=== PATIENT | female | born 1990 | race American Indian/Alaskan Native ===

== ENCOUNTER 2021-03-13 13:18 | Emergency (ER) | payer SELFPAY ==
[2021-03-13 14:33] VITALS: BP 109/68
--- NOTE | 2021-03-13 14:37 | Emergency Department Report ---
Abscess Boil HPI - HPI Chief Complaint: Skin/Abscess/Foreign Body Stated Complaint: LUMPS UNDER ARM Time Seen by Provider: 03/13/21 14:00 Duration: 1 Week Location: Upper Extremity Severity: Mild History: No Fever, No Pain, No Purulent Drainage, No Numbness, No Foreign Body, No Previous History, No Insect Bite HPI: This is a 30-year-old female nontoxic, well nourished in appearance, no acute signs of distress presents to the ED with c/o of some swelling and pain to left axilla area x 1 week. Patient denies any pus or drainage. Patient denies any fever, chills, nausea, vomiting, chest pain, shortness of breath, headache or stiff neck. Patient denies any allergies. Home Medications: Previous Rx's Medication Instructions Recorded Last Taken Type Sulfamethoxazole/Trimethoprim 1 each PO BID #14 tablet 03/13/21 Unknown Rx [Bactrim DS TAB] Allergies/Adverse Reactions: Allergies Allergy/AdvReac Type Severity Reaction Status Date / Time No Known Allergies Allergy Verified 03/13/21 13:21 ED Review of Systems ROS: Stated complaint: LUMPS UNDER ARM Other details as noted in HPI Comment: All other systems reviewed and negative Constitutional: denies: chills, fever Eyes: denies: eye pain, eye discharge, vision change ENT: denies: ear pain, throat pain Respiratory: denies: cough, shortness of breath, wheezing Cardiovascular: denies: chest pain, palpitations Endocrine: no symptoms reported Gastrointestinal: denies: abdominal pain, nausea, diarrhea Genitourinary: denies: urgency, dysuria, discharge Musculoskeletal: denies: back pain, joint swelling, arthralgia Skin: denies: rash, lesions Neurological: denies: headache, weakness, paresthesias Psychiatric: denies: anxiety, depression Hematological/Lymphatic: denies: easy bleeding, easy bruising ED Past Medical Hx - Medications Home Medications: Home Medications Medication Instructions Recorded Confirmed Last Taken Type Sulfamethoxazole/Trimethoprim 1 each PO BID #14 tablet 03/13/21 Unknown Rx [Bactrim DS TAB] ED Abscess Boil Physical Exam - Exam General: Vital signs noted. No distress. Alert and acting appropriately. Size: 1 cm Exam: Yes Tenderness, Yes Normal Neurologic Exam, Yes Normal Circulation, No Fluctuance, No Surrounding Cellulites/Erythema, No Lymphangitis, No Crepitation, No Heart Murmur Exam: Nodular tenderess with no induration or flutance noted to left axilla. ED Course Vital Signs 03/13/21 13:22 Temperature 97.8 F Pulse Rate 104 H Respiratory 16 Rate Blood Pressure 109/68 O2 Sat by Pulse 98 Oximetry - Reevaluation(s) Reevaluation #1: 03/13/21 14:35 Patient is speaking in full sentences with no signs of distress noted. Critical care attestation.: If time is entered above; I have spent that time in minutes in the direct care of this critically ill patient, excluding procedure time. ED Medical Decision Making - Medical Decision Making This is a 30-year-old female that presents with cellulitis with most likely developing abscess. Patient is stable and was examined by me. There is no induration, fluctuance. At this time incision and drainage has not been performed due to no induration or fluctuance. The area has been outlined with a permanent marker and patient was instructed to observe symptoms of increased redness or swelling and to return to the ER if this does occur. I will discharge patient with Bactrim. Patient was referred to Follow-up with a primary care doctor in 3-5 days or if symptoms worsen and continue return to emergency room as soon as possible. At time of discharge, the patient does not seem toxic or ill in appearance. No acute signs of distress noted. Patient agrees to discharge treatment plan of care. No further questions noted by the patient. ED Disposition Clinical Impression: Cellulitis Qualifiers: Site of cellulitis: extremity Site of cellulitis of extremity: upper extremity Laterality: left Qualified Code(s): L03.114 - Cellulitis of left upper limb Disposition: HOME / SELF CARE / HOMELESS Is pt being admited?: No Does the pt Need Aspirin: No Condition: Stable Additional Instructions: Follow-up with a primary care doctor in 3-5 days or if symptoms worsen and continue return to emergency room as soon as possible. Prescriptions: Sulfamethoxazole/Trimethoprim [Bactrim DS TAB] 1 each PO BID #14 tablet Referrals: PRIMARY CAREMD [Referring] - 3-5 Days CRYS NAPOLES MD [Staff Physician] - 3-5 Days Time of Disposition: 14:37
== END 2021-03-13 15:09 | disposition home or self-care (01) ==
LOC: ED 13:18
DX: L03.114 Cellulitis of left upper limb (principal); Z79.899 Other long term (current) drug therapy
CPT/HCPCS: 99281

== ENCOUNTER 2021-03-13 18:45 | Emergency (ER) | payer MEDICAID ==
--- NOTE | 2021-03-13 21:01 | Emergency Department Report ---
ED General Adult HPI - General Chief complaint: Medical Clearance Stated complaint: SKIN CONDITION Time Seen by Provider: 03/13/21 20:52 Source: patient Mode of arrival: Ambulatory Limitations: No Limitations - History of Present Illness Initial comments: 30-year-old F [place] female with my department complaining of reemerging acne issue to her face and she seeks medications to resolve the skin condition. She reports no fever, chills, sweats. No change in activities of daily and daily livings or any known irritants to cause any rash flareups. She also reports having come in contact with and an STD in 2006 in the form of herpes and wants to to be reevaluated for a herpes to see if she still carries the virus. She also wants to get STD panel to make sure she has not picked up any other sexual transmitted diseases although she reports not being currently active. He reports no vaginal bleeding, no pelvic pain, no dysuria no genital rashes no oral rashes no hematuria or dysuria. Next states she wants to change her housing situation and want us to help her change her current living location she does not like the current environment. She reports no current harm being done she reports no unsafe situation but does want a different location. Lastly she reports having increased amount of belching and flatulence after consuming certain meals of unknown etiology she is not tried any palliative factors reports no abdominal pain, no hemoptysis no hematemesis no hematochezia no melena Radiation: non-radiation Consistency: constant Improves with: none Associated Symptoms: denies other symptoms. denies: chest pain, cough, fever/chills, loss of appetite, nausea/vomiting, shortness of breath, syncope, weakness - Related Data Previous Rx's Medication Instructions Recorded Last Taken Type Sulfamethoxazole/Trimethoprim 1 each PO BID #14 tablet 03/13/21 Unknown Rx [Bactrim DS TAB] Allergies Allergy/AdvReac Type Severity Reaction Status Date / Time No Known Allergies Allergy Verified 03/13/21 13:21 ED Review of Systems ROS: Stated complaint: SKIN CONDITION Other details as noted in HPI Comment: All other systems reviewed and negative ED Past Medical Hx - Past Medical History Previous Medical History?: No - Surgical History Past Surgical History?: No - Social History Smoking Status: Unknown if ever smoked - Medications Home Medications: Home Medications Medication Instructions Recorded Confirmed Last Taken Type Sulfamethoxazole/Trimethoprim 1 each PO BID #14 tablet 03/13/21 Unknown Rx [Bactrim DS TAB] ED Physical Exam - General Limitations: No Limitations General appearance: alert, in no apparent distress - Head Head exam: Present: atraumatic, normocephalic - Eye Eye exam: Present: normal appearance, PERRL, EOMI, scleral icterus Pupils: Present: normal accommodation - ENT ENT exam: Present: normal exam, normal orophraynx, mucous membranes moist, TM's normal bilaterally - Neck Neck exam: Present: normal inspection, full ROM - Respiratory Respiratory exam: Present: normal lung sounds bilaterally. Absent: respiratory distress, wheezes, rales, accessory muscle use, decreased breath sounds - Cardiovascular Cardiovascular Exam: Present: regular rate, normal rhythm. Absent: systolic murmur, diastolic murmur, rubs, gallop - GI/Abdominal GI/Abdominal exam: Present: soft, normal bowel sounds - Extremities Exam Extremities exam: Present: normal inspection - Back Exam Back exam: Present: normal inspection - Neurological Exam Neurological exam: Present: alert, oriented X3 - Psychiatric Psychiatric exam: Present: normal affect, normal mood - Skin Skin exam: Present: warm, dry, intact, normal color. Absent: rash ED Course Vital Signs 03/13/21 19:36 Temperature 99.5 F Pulse Rate 90 Respiratory 18 Rate Blood Pressure 125/83 O2 Sat by Pulse 100 Oximetry Critical care attestation.: If time is entered above; I have spent that time in minutes in the direct care of this critically ill patient, excluding procedure time. ED Disposition Clinical Impression: Cellulitis, Acne, Belching Disposition: 01 HOME / SELF CARE / HOMELESS Is pt being admited?: No Does the pt Need Aspirin: No Condition: Stable Instructions: Indigestion, [id number], Acne, [id number] Additional Instructions: He was seen in the emergency department for multiple complaints. Based on the physical examination and the history of your issues no emergent or urgent medical condition was discovered. You are safe to follow-up with your primary care provider for further evaluations of your concerns. Referrals: [facility] [Provider Group] - 3-5 Days
[2021-03-13 22:02] VITALS: BP 107/74
== END 2021-03-13 22:01 | disposition home or self-care (01) ==
LOC: ED 18:45
DX: L70.9 Acne, unspecified (principal); L03.90 Cellulitis, unspecified; R14.2 Eructation
CPT/HCPCS: 99282

== ENCOUNTER 2021-03-14 00:09 | Emergency (ER) | payer SELFPAY ==
--- NOTE | 2021-03-14 08:18 | Emergency Department Report ---
Chief Complaint: Anxiety Stated Complaint: ANXIETY ATTACK Time Seen by Provider: 03/14/21 08:15 - HPI History of Present Illness: 30-year-old -[place] female presents to the emergency room for the third time around stating that she has nowhere to go. Patient was given a handout for homeless shelters. She states that she needs a mental health evaluation because she did not take a shower today. Patient denies hurting herself or others. - Exam Vital Signs: Vital Signs 03/14/21 03/14/21 00:10 04:49 Temperature 101.6 F H 98.0 F Pulse Rate 117 H 89 Respiratory 20 18 Rate Blood Pressure 128/73 [Left] O2 Sat by Pulse 98 Oximetry Physical Exam: General: Awake, appropriately interactive, no acute distress. Neck: Supple. Full range of motion intact. Cardiovascular: Normal peripheral perfusion. Pulmonary: No respiratory distress. Patient is speaking normally without use of accessory muscles. Skin: No apparent rashes or lesions. Except acne on her face Neurological: No facial asymmetry. Speech is clear. Follows commands. Patient is alert and oriented. Musculoskeletal: Full range of motion, no crepitus. Able to bear weight and ambulate without difficulty. Distal neurovascular and motor/sensory function is intact. Psych: Cooperative. Appropriate mood and affect. MSE screening note: Focused history and physical exam performed. Due to findings the following was ordered: 30-year-old -[place] female presents to the emergency room for the third time around stating that she has nowhere to go. Patient was given a handout for homeless shelters. She states that she needs a mental health evaluation because she did not take a shower today. Patient denies hurting herself or others. Handout given to patient for homeless shelters that she can go and get assistance. ED Disposition for MSE Clinical Impression: Malingering Disposition: 01 HOME / SELF CARE / HOMELESS Is pt being admited?: No Does the pt Need Aspirin: No Condition: Stable Additional Instructions: Referral has been given to you for homeless shelters and mental health facilities. I recommended she follow-up with 1 of those. Referrals: PRIMARY CARE, [Primary Care Provider] - 3-5 Days Time of Disposition: 08:18
[2021-03-14 08:47] VITALS: BP 120/73
== END 2021-03-14 08:49 | disposition home or self-care (01) ==
LOC: ED 00:09
DX: Z76.5 Malingerer [conscious simulation] (principal); Z59.00 Homelessness unspecified
CPT/HCPCS: 99282

== ENCOUNTER 2021-06-09 11:53 | Emergency (ER) | payer SELFPAY ==
[2021-06-09 12:00] VITALS: BP 119/74
[2021-06-09] MEDS ORDERED: KETOROLAC 30 MG/1 ML INJ ONE (13:02)
--- NOTE | 2021-06-09 13:49 | Emergency Department Report ---
ED Psych HPI - General Chief Complaint: Medical Clearance Stated Complaint: MENTAL HEALTH EVALUATION Time Seen by Provider: 06/09/21 13:28 Source: patient Mode of arrival: Ambulatory - History of Present Illness Initial Comments: Patient is a 30 years old female with unknown past psychiatric history. Patient presented to the ER by herself stating that she needs mental health evaluation. Patient stated that she [facility] living in a [facility] and the confectionery laboratory manager of the fdc asked her to come to the ER for mental health evaluation. Patient stated that she does have an anxiety. She stated that she does not have any suicidal or homicidal ideation. She also denied any auditory or visual hallucination. Patient with mild pressured speech and flight of ideas however patient is not in acute psychosis. MD Complaint: other - Related Data Previous Rx's Medication Instructions Recorded Last Taken Type Sulfamethoxazole/Trimethoprim 1 each PO BID #14 tablet 03/13/21 Unknown Rx [Bactrim DS TAB] Allergies Allergy/AdvReac Type Severity Reaction Status Date / Time No Known Allergies Allergy Verified 06/09/21 11:55 ED Review of Systems ROS: Stated complaint: MENTAL HEALTH EVALUATION Other details as noted in HPI Comment: All other systems reviewed and negative Constitutional: denies: chills, fever Respiratory: denies: cough, shortness of breath, SOB with exertion Cardiovascular: denies: chest pain, palpitations Gastrointestinal: denies: abdominal pain, nausea, vomiting, diarrhea, constipation, hematemesis, melena, hematochezia Musculoskeletal: denies: back pain Neurological: denies: headache, weakness, numbness, paresthesias, confusion Psychiatric: anxiety. denies: auditory hallucinations, visual hallucinations, h omicidal thoughts, suicidal thoughts ED Past Medical Hx - Past Medical History Previous Medical History?: No - Surgical History Past Surgical History?: No - Social History Smoking Status: Unknown if ever smoked - Medications Home Medications: Home Medications Medication Instructions Recorded Confirmed Last Taken Type Sulfamethoxazole/Trimethoprim 1 each PO BID #14 tablet 03/13/21 Unknown Rx [Bactrim DS TAB] ED Physical Exam - General Limitations: No Limitations General appearance: alert, in no apparent distress - Head Head exam: Present: atraumatic, normocephalic, normal inspection - Eye Eye exam: Present: normal appearance - ENT ENT exam: Present: normal exam, normal orophraynx, mucous membranes moist - Neck Neck exam: Present: normal inspection, full ROM. Absent: tenderness, meningismus, lymphadenopathy, thyromegaly - Respiratory Respiratory exam: Present: normal lung sounds bilaterally - Cardiovascular Cardiovascular Exam: Present: regular rate, normal rhythm, normal heart sounds - GI/Abdominal GI/Abdominal exam: Present: soft, normal bowel sounds. Absent: distended, tenderness, guarding, rebound, rigid, organomegaly, mass, bruit, pulsatile mass, hernia - Extremities Exam Extremities exam: Present: normal inspection, full ROM, normal capillary refill. Absent: tenderness, pedal edema, joint swelling, calf tenderness - Back Exam Back exam: Present: normal inspection, full ROM. Absent: CVA tenderness (R), CVA tenderness (L) - Neurological Exam Neurological exam: Present: alert, oriented X3, CN II-XII intact, normal gait, reflexes normal. Absent: motor sensory deficit - Psychiatric Psychiatric exam: Present: anxious. Absent: homicidal ideation, suicidal ideation - Skin Skin exam: Present: warm, intact, normal color ED Course Vital Signs 06/09/21 11:59 Temperature 98.8 F Pulse Rate 78 Respiratory 20 Rate Blood Pressure 119/74 O2 Sat by Pulse 100 Oximetry ED Medical Decision Making - Lab Data Result diagrams: 06/09/21 13:51 06/09/21 13:51 - Medical Decision Making Patient is a 30 years old female with unknown past psychiatric history. Patient presented to the ER by herself stating that she needs mental health evaluation. Patient stated that she was living in a [facility] and the confectionery laboratory manager of the fdc asked her to come to the ER for mental health evaluation. Patient stated that she does have an anxiety. She stated that she does not have any suicidal or homicidal ideation. She also denied any auditory or visual hallucination. Patient with mild pressured speech and flight of ideas however patient is not in acute psychosis. Critical care attestation.: If time is entered above; I have spent that time in minutes in the direct care of this critically ill patient, excluding procedure time. ED Disposition Clinical Impression: Mental and behavioral problem in adult Disposition: 07 LEFT AWOL/ELOPED Is pt being admited?: No Condition: Stable Referrals: PRIMARY CARE, [Primary Care Provider] - 3-5 Days
[2021-06-09 15:01] LABS: Basophils % (Auto) 0.5 % (0.0-1.8); Eosinophils % (Auto) 0.5 % (0.0-4.3); Hematocrit 40.2 % (30.3-42.9); Hemoglobin 12.7 gm/dl (10.1-14.3); Lymphocytes # (Auto) 2.3 K/mm3 (1.2-5.4); Lymphocytes % (Auto) 25.8 % (13.4-35.0); Mean Corpuscular HGB Conc 32 % (30-34); Mean Corpuscular Volume 82 fl (79-97); Monocytes # (Auto) 0.9 K/mm3 (0.0-0.8); Monocytes % (Auto) 10.1 % (0.0-7.3); Platelet Count 258 K/mm3 (140-440); Red Blood Count 4.91 M/mm3 (3.65-5.03); Red Cell Distribution Width 13.7 % (13.2-15.2)
[2021-06-09 15:06] LABS: Blood Urea Nitrogen 22 mg/dL (7-17); Calcium 9.1 mg/dL (8.4-10.2); Hemolysis Index 2
[2021-06-09 15:07] LABS: BUN/Creatinine Ratio 31
[2021-06-09 20:44] LABS: Bacteria,Urine 2+ /HPF (Negative); Mucus,Urine FEW /HPF
[2021-06-09 20:57] LABS: Bilirubin,Urine NEG (Negative); Blood,Urine NEG (Negative); Color,Urine Yellow (Yellow); Protein,Urine <15 mg/dL mg/dL (Negative); Urobilinogen,Urine < 2.0 mg/dL (<2.0)
[2021-06-09 21:34] LABS: Amphetamine Screen,Urine Negative; Benzodiazepines Screen,Urine Negative; Cannabinoid Screen,Urine Negative; Cocaine Screen,Urine Negative; Methadone Screen,Urine Negative; Opiate Screen,Urine Negative
== END 2021-06-10 09:50 | disposition left against medical advice (07) ==
LOC: ED 11:53
DX: F69 Unspecified disorder of adult personality and behavior (principal); Z79.899 Other long term (current) drug therapy
CPT/HCPCS: 36415; 80048; 80307; 81001; 84703; 85025; 99283; J1885; 80320; G0480